=== PATIENT | male | born 1965 | race Hispanic/Latino ===

== ENCOUNTER → 2025-03-25 | Outpatient (CLI) | payer OTHER ==
--- NOTE | 2025-03-30 10:27 | HMCIMG ---
EXAM: CT Abdomen and Pelvis Without IV contrast CLINICAL HISTORY: Pyelonephritis. TECHNIQUE: Axial computed tomography images of the abdomen and pelvis without intravenous contrast. COMPARISON: None provided. FINDINGS: LUNG BASES: The lung bases appear clear. No pleural effusions are seen. LIVER: Unremarkable. GALLBLADDER AND BILE DUCTS: Calculus measuring 6-7 mm in the neck of the gallbladder. No biliary ductal dilatation is evident. PANCREAS: Unremarkable. SPLEEN: Unremarkable. ADRENAL GLANDS: Unremarkable. KIDNEYS, URETERS, AND BLADDER: Bilateral perinephric fat stranding. Moderate to severe bilateral hydroureteronephrosis. No radiodense ureteric Calculi. Diffuse thickening of the urinary bladder wall measuring 6-7 mm, and bladder distention. STOMACH AND BOWEL: Unremarkable appearance of the stomach and bowel. No evidence of bowel obstruction. No evidence suggesting enteritis or colitis. PERITONEUM: No free fluid. No free air. LYMPH NODES: No lymphadenopathy is evident. REPRODUCTIVE: Enlarged in size measuring 65-66 cc VASCULATURE: No evidence of abdominal aortic aneurysm. BONES: No aggressive appearing osseous lesion. No acute osseous pathology evident. Umbilical hernia measuring 8 mm with herniation of omental fat. IMPRESSION: Marked prostatic hypertrophy with features of cystitis likely related to chronic bladder outlet obstruction. Moderate to severe bilateral hydroureteronephrosis with perinephric fat stranding reflecting obstructive nephropathy. No radiopaque calculus appreciated within either kidney calculi, along the course of either ureter, or within the bladder. Cholelithiasis with no evidence of cholecystitis. Umbilical hernia. /[place]
== END | disposition home or self-care (01) ==
LOC: RAH 13:58
PROVIDERS: ATTEND Emergency Medicine
DX: K80.20 Calculus of gallbladder without cholecystitis without obstruction (principal); K42.9 Umbilical hernia without obstruction or gangrene; N40.0 Benign prostatic hyperplasia without lower urinary tract symptoms; N30.90 Cystitis, unspecified without hematuria; N13.8 Other obstructive and reflux uropathy; N12 Tubulo-interstitial nephritis, not specified as acute or chronic; N13.30 Unspecified hydronephrosis; N32.89 Other specified disorders of bladder; N41.0 Acute prostatitis
CPT/HCPCS: 74176

== ENCOUNTER → 2025-04-28 | Outpatient (CLI) | payer OTHER ==
--- NOTE | 2025-04-28 16:38 | HMCIMG ---
EXAM: CT Abdomen and Pelvis with or without Intravenous Contrast CLINICAL HISTORY: 59 year old male with hydronephrosis. TECHNIQUE: Axial computed tomography images of the abdomen and pelvis without or with intravenous contrast. Dose reduction technique was used including one or more of the following: automated exposure control, adjustment of mA and kV according to patient size, and/or iterative reconstruction. CONTRAST: NONE COMPARISON: CT Abdomen and Pelvis 03/25/25 FINDINGS: LUNG BASES: No basilar airspace consolidation or pleural effusion. LIVER: Unremarkable. GALLBLADDER AND BILE DUCTS: Unremarkable. No calcified stone. No ductal dilation. PANCREAS: Unremarkable. SPLEEN: Unremarkable. KIDNEYS, URETERS, AND BLADDER: Mild bilateral hydronephrosis and hydroureter, but no evidence for obstructing ureteral stone. The bladder is mildly distended with some thickening of the bladder terry, possibly acute on chronic cystitis. Question of bladder outlet obstruction. STOMACH AND BOWEL: No obstruction. No wall thickening. No CT evidence of colitis or acute diverticulitis. APPENDIX: No CT evidence for appendicitis. PERITONEUM: No free fluid. No free air. LYMPH NODES: No lymphadenopathy. REPRODUCTIVE: Unremarkable as visualized. VASCULATURE: No aortic aneurysm. ABDOMINAL WALL AND SOFT TISSUES: Unremarkable. BONES: No fracture or suspicious osseous abnormality. IMPRESSION: 1. Mild bilateral hydronephrosis and hydroureter, no evidence for obstructing ureteral stone. 2. Mildly distended bladder with wall thickening, possibly acute on chronic cystitis. Question of bladder outlet obstruction. 3. Findings similar to prior CT abdomen pelvis 03/25/25. /[place]
== END | disposition home or self-care (01) ==
LOC: RAH 13:01
PROVIDERS: ATTEND Urology
DX: N13.39 Other hydronephrosis (principal); N32.89 Other specified disorders of bladder
CPT/HCPCS: 74176

== ENCOUNTER → 2025-06-28 | Outpatient (CLI) | payer OTHER ==
--- NOTE | 2025-06-28 16:52 | HMCIMG ---
EXAM: CT Abdomen and Pelvis Without IV contrast CLINICAL HISTORY: Other hydronephrosis, *COMPARE TO PREVIOUS CT* TECHNIQUE: Axial computed tomography images of the abdomen and pelvis without intravenous contrast. CONTRAST: No IV contrast. COMPARISON: 04/28/25 FINDINGS: LUNG BASES: No basilar airspace consolidation or pleural effusion. LIVER: Unremarkable. GALLBLADDER AND BILE DUCTS: Unremarkable. No calcified stone. No ductal dilation. PANCREAS: Unremarkable. SPLEEN: Unremarkable. KIDNEYS, URETERS, AND BLADDER: The bladder is partially distended with a thick, irregular wall, suggesting a possibility of cystitis changes. Findings appear static as compared to the prior report dated April 28, 2025. There is no hydroureteronephrosis as mentioned in the previous report dated April 28, 2025. Advice: Renal function test correlation. STOMACH AND BOWEL: No obstruction. No wall thickening. No CT evidence of colitis or acute diverticulitis. PERITONEUM: Approximately 10 mm gap defect at the umbilicus region through which herniation of the omental fat is present, suggestive of umbilical hernia. No free fluid. No free air. LYMPH NODES: No lymphadenopathy. REPRODUCTIVE: Unremarkable as visualized. VASCULATURE: No aortic aneurysm. ABDOMINAL WALL AND SOFT TISSUES: Unremarkable. BONES: Osseous degenerative changes. No fracture or suspicious osseous abnormality.IMPRESSION: 1. No urinary calculi. No hydronephrosis. Resolution of previously seen bilateral hydroureteronephrosis. 2. Partially distended bladder with thick, irregular wall, possibly representing cystitis, unchanged from prior exam. 3. No bowel obstruction or inflammation. /[place]
== END | disposition home or self-care (01) ==
LOC: RAH 12:30
PROVIDERS: ATTEND Urology
DX: N13.39 Other hydronephrosis (principal); N32.89 Other specified disorders of bladder
CPT/HCPCS: 74176